=== PATIENT | female | born 2000 | race Caucasian/White ===

== ENCOUNTER 2024-11-04 10:51 | Outpatient (CLI) | payer OTHER, SELFPAY | END 2024-11-04 10:52 | disposition home or self-care (01) | LOC: NFLDREF 10:53 | PROVIDERS: Visit Provider Advanced Practice Midwife | DX: N91.4 Secondary oligomenorrhea (principal); Z13.220 Encounter for screening for lipoid disorders; Z13.1 Encounter for screening for diabetes mellitus | CPT/HCPCS: 80061; 82947; 84443 ==

== ENCOUNTER 2024-11-24 07:52 | Outpatient (CLI) | payer OTHER, SELFPAY | END 2024-11-24 07:53 | disposition home or self-care (01) | LOC: NFLDREF 11-27 13:02 | PROVIDERS: Visit Provider Physician Assistant | DX: N91.2 Amenorrhea, unspecified (principal) | CPT/HCPCS: 82670; 83001; 83498; 83525; 84146; 84270; 84402; 84403 ==

== ENCOUNTER 2025-03-24 07:47 | Outpatient (CLI) | payer OTHER, SELFPAY | END 2025-03-24 07:48 | disposition home or self-care (01) | LOC: NFLDREF 04-01 18:44 | PROVIDERS: Visit Provider Physician Assistant | DX: N97.0 Female infertility associated with anovulation (principal) | CPT/HCPCS: 82670; 83001; 84144 ==

== ENCOUNTER 2025-04-01 08:47 | Outpatient (CLI) | payer OTHER, SELFPAY ==
--- NOTE | 2025-04-01 09:15 | CRLHL7_ITS ---
For Patients: As a result of the Century Cures Act, medical imaging exams and procedure reports are released immediately into your electronic medical record. You may view this report before your referring provider. If you have questions, please contact your health care provider. Indication: infertility, Encounter for procreative management, unspecified Technique: Routine hysterosalpingogram performed. Fluoroscopic time 30 seconds. IMPRESSION: Normal patency of the fallopian tubes with spillage into the peritoneal cavity. No endometrial canal filling defect. Normal exam. Dictated by Umair Whaley MD @ 04/01/2025 12:18:14 PM (Electronically Signed)
--- NOTE | 2025-04-01 11:52 | W.PM.GYNPROC ---
Procedure Note Date of procedure: 04/01/25 Will [facility] bill your pro fee for this procedure?: Yes Pre-op diagnosis: Infertility evaluation Post-op diagnosis: Same Procedure: Hysterosalpingogram Anesthesia: none Complications: None Surgeon: Vida Garcia Estimated blood loss (mL): 0 Pathology: none sent Condition: stable Disposition: other (Home) Findings: Normal exam. Procedure Description: PROCEDURE: After obtaining verbal consent, the patient was placed in the dorsal lithotomy position on the x-ray table. An open-sided bivalve speculum was introduced into the vagina and the cervix easily visualized. The cervix and vagina were then prepped with Betadine. The anterior lip of the cervix was grasped with a single-tooth tenaculum for traction. A balloon tipped double-lumen catheter was then gently inserted through the cervical opening into the uterine cavity to the level of the fundus. The balloon was insufflated with 3 mL of air. The tenaculum and speculum were removed. The patient was repositioned in the supine position, covered, and the radiologist was called to the room. A hysterosalpingogram was then performed. A total of 10 cc of Optiray 300 water soluble contrast dye was injected through the double-lumen catheter under moderate pressure. There was immediate fill of the uterine cavity to the cornua and immediate fill of both fallopian tubes and free spillage of dye on both sides. The balloon was deflated. The catheter was removed. The patient tolerated the procedure well, though she did have moderate cramping discomfort during and just after the procedure. She was discharged to home in stable condition and to follow up as [facility].
== END 2025-04-01 08:48 | disposition home or self-care (01) ==
LOC: RAD 08:47
PROVIDERS: Visit Provider Obstetrics & Gynecology
DX: N97.9 Female infertility, unspecified (principal); Z31.9 Encounter for procreative management, unspecified
CPT/HCPCS: 58340; 74740; A4649; Q9967

== ENCOUNTER 2025-04-11 11:31 | Outpatient (CLI) | payer OTHER, SELFPAY ==
[2025-04-14 12:40] LABS: Progesterone, HPLC-MS/MS <0.10 ng/mL
== END 2025-04-11 11:32 | disposition home or self-care (01) ==
LOC: LAB 11:31
PROVIDERS: Referring Provider Physician Assistant; Visit Provider Physician Assistant
DX: N97.0 Female infertility associated with anovulation (principal); N91.2 Amenorrhea, unspecified; N91.5 Oligomenorrhea, unspecified; E88.819 Insulin resistance, unspecified; E66.812 Obesity, class 2; Z79.84 Long term (current) use of oral hypoglycemic drugs; Z79.890 Hormone replacement therapy; F32.A Depression, unspecified; Z51.81 Encounter for therapeutic drug level monitoring
CPT/HCPCS: 36415; 84144

== ENCOUNTER 2025-05-23 08:15 | Outpatient (CLI) | payer OTHER, SELFPAY | END 2025-05-23 08:16 | disposition home or self-care (01) | LOC: NFLDREF 05-25 15:21 | PROVIDERS: Visit Provider Physician Assistant | DX: N97.0 Female infertility associated with anovulation (principal) | CPT/HCPCS: 84144 ==